=== PATIENT | male | born 1965 | race Caucasian/White ===

== ENCOUNTER 2019-04-26 12:04 | Inpatient (IN) ==
--- OUTSIDE RECORDS SUMMARY | 2019-04-26 12:07 | External Medical Summary | Continuity of Care Document ---
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) Change in bowel habits (787.99) (R19.4) Diarrhea (787.91) (R19.7) Extrinsic asthma (493.00) (J45.909) Allergic rhinitis due to dust (477.8) (J30.89) Allergic rhinitis due to pollen (477.0) (J30.1) Esophageal reflux (530.81) (K21.9) Bloating (787.3) (R14.0) Allergies and Adverse Reactions Iodinated Contrast Media (Allergy) React ion: Hives Medications Ventolin HFA 108 (90 Base) MCG/ACT Inhal ation Aerosol Solution; INHALE TWO PUFFS BY MOUTH EVERY 4 TO 6 HOURS NEEDED NICOLLE Wasserman Start: 22-Mar-19 Quantity: 1 18 GM Inhaler Refills: 5 Symbicort 160-4.5 MCG/ACT Inhalation Aer osol; INHALE 2 PUFFS TWICE DAILY. RINSE MOUTH AFTER USE. NICOLLE Wasserman Start: 19-Apr-2011 Quantity: 1 Refills: 5 Fluticasone Propionate 50 MCG/ACT Nasal Suspension; USE 2 SPRAYS IN EACH NOSTRIL ONCE DAILY NICOLLE Wasserman Start: 19-Apr-2011 Quantity: 1 Refills: 5 Procedures History of Tonsillectomy Status: Complet ed History of Ear Pressure Equalization Tube, Insertion Status: Completed History of Hernia Repair Inguinal Sliding Status: Completed Immunizations Immunizations not documented Family History Father Family history of Acute Myocardial Infarction (V17.3) Status : Active Family history of Stroke Syndrome (V17.1) Status: Active Family history of Asthma (V17.5) Status: Active Mother Family history of Stroke Syndrome (V17.1) Status: Active Family history of Diabetes Mellitus (V18.0) Status: Active Family history of Graves' Disease Status: Active Family history of Allergic Rhinitis Status: Active Social History - Smoking Status Ex-smoker Plan of Treatment Planned Observations Planned Goals not documented Results No Known Results Results not documented
--- OUTSIDE RECORDS SUMMARY | 2019-04-26 12:08 | External Medical Summary | Continuity of Care Document ---
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
[2019-04-26] MEDS ORDERED: SODIUM CHLORIDE 0.9% 1000ML 1,000 ML IV ONE (12:32)
[2019-04-26] MEDS ORDERED: ALBUTEROL 0.083% NEBU SOLN 3 ML VIAL NEB STA (12:35)
[2019-04-26] MEDS ORDERED: methylPREDNISolone 125 MG/2 ML VIAL IV STA (12:35)
[2019-04-26] MEDS ORDERED: ACETAMINOPHEN 500 MG TAB PO STA (12:37)
[2019-04-26 12:56] LABS: Influenza B virus by PCR Neg for Influ B (Neg)
[2019-04-26 13:21] LABS: Hematocrit (blood only) 40.5 % (42-52); Hemoglobin 13.8 g/dL (14.0-18.0); Immature Granulocytes # (auto) 0.02 K/uL (0.00-0.02); Immature Granulocytes % (auto) 0.3 %; Lymphocytes # (auto) 0.35 K/uL (1.2-3.4); Lymphocytes % (auto) 5.3 %; Mean Corpuscular Hemoglobin 28.8 pg (25-34); Mean Corpuscular Hgb Conc 34.1 g/dL (32-36); Mean Corpuscular Volume 84.4 fL (80-100); Mean Platelet Volume 9.8 fL (7.4-10.4); Monocytes # (auto) 0.76 K/uL (0.11-0.59); Monocytes % (auto) 11.6 %; Neutrophils # (auto) 5.44 K/uL (1.4-6.5); Neutrophils % (auto) 82.8 %; Platelet Count 168 K/uL (130-400); RDW Coefficient of Variation 13.3 % (11.5-14.5); RDW Standard Deviation 40.8 fL (36.4-46.3); White Blood Count 6.57 K/uL (4.8-10.8)
[2019-04-26 13:39] LABS: Alanine Aminotransferase 32 U/L (12-78); Albumin Globulin Ratio 0.9 (0.9-2); Albumin Level 3.7 gm/dl (3.4-5.0); Aspartate Aminotransferase 29 U/L (15-37); BUN Creatinine Ratio 13.4 (10-20); Bilirubin,Total 0.3 mg/dl (0.2-1); Blood Urea Nitrogen 13 mg/dl (7-18); Calcium 8.8 mg/dl (8.5-10.1); Carbon Dioxide 21 mmol/L (21-32); Chloride 105 mmol/L (98-107); Creatinine Clr Calc Pharmacy 110.4 ml/min; Est GFR (African American) 100.4; Est GFR (Non-African American) 86.6; Globulin 3.9 gm/dl (2.5-4.0); Glucose 108 mg/dl (70-99); Magnesium 2.1 mg/dl (1.8-2.4); Partial Thromboplastin Ratio 1.2; Partial Thromboplastin Time 32.5 Seconds (21.0-31.0); Potassium 4.1 mmol/L (3.5-5.1); Prothrombin Time 10.6 Seconds (9.0-12.0); Sodium 134 mmol/L (136-145); Total Protein 7.6 gm/dl (6.4-8.2)
[2019-04-26 13:42] LABS: Alkaline Phosphatase 42 U/L (45-117); Troponin I < 0.015 ng/ml (0-0.045)
--- NOTE | 2019-04-26 13:51 | XRay Report ---
XR chest 1V portable CLINICAL HISTORY: Sepsis. COMPARISON STUDY: No previous studies for comparison. FINDINGS: An 8 mm nodular opacity within the right midlung is noted. Mild left basilar opacity is pre sent. Mild bilateral hilar enlargement is noted. Cardiac size is normal. Mediastinal contours are unr emarkable. There is no pneumothorax or pleural effusion. Patient is mildly rotated. IMPRESSION: 1. Mild left basilar opacity which favors pneumonia. Radiographic follow up to ensure resolution is r ecommended. 2. Possible 8 mm right midlung nodule which should be assessed on follow-up chest radiograph. 3. Mild bilateral hilar enlargement which may be reactive but can be assessed on subsequent chest rad iographs. ACT 112: Negative or not required by law. Electronically signed by: Rui Medina M.D. 04/26/2019 1:49 PM
[2019-04-26] MEDS ORDERED: AZITHROMYCIN 250 MG TAB PO ONE (13:52)
[2019-04-26] MEDS ORDERED: cefTRIAXone SODIUM 1,000 MG/50 ML BAG IV STA (13:52)
[2019-04-26] MEDS ORDERED: OSELTAMIVIR PHOSPHATE 75 MG CAP PO STA (13:52)
[2019-04-26 14:38] LABS: Appearance Urine Clear (Clear); Bilirubin Urine Negative (Negative); Blood Urine Negative (Negative); Color Urine Yellow; Glucose Urine UA Negative (Negative); Ketones Urine 1+ (Negative); Leukocyte Esterase Urine Negative (Negative); Nitrite Urine Negative (Negative); Protein Urine Negative (Negative); Specific Gravity Urine 1.014 (1.000-1.030); Urobilinogen Urine Negative (Negative)
--- NOTE | 2019-04-26 15:09 | CT Scan Report ---
CT OF THE CHEST WITHOUT IV CONTRAST CLINICAL HISTORY: pna concern for aggarwal COMPARISON STUDY: Chest radiograph April 26, 2019. CT DOSE: 662.86 mGycm TECHNIQUE: Axial images of the chest were obtained without IV contrast. Images were reviewed in the axial, sagittal, and coronal planes. IV contrast was not administered for this examination. Automat ed exposure control was utilized for the study. A dose lowering technique was utilized adhering to t he principles of ALARA. FINDINGS: Size of the heart is normal. There is no pericardial effusion. No pneumothorax or pleural effusion is noted. The central airways are patent. No enlarged thoracic lymph nodes are present. Mult ifocal groundglass opacities and consolidation are present within the lungs. Confluent subpleural tony undglass opacity and consolidation within the left lower lobe is noted. These opacities are present w ithin the right upper lobe, lingula and bilateral lower lobes. There is no cavitation. Upper abdomen is unremarkable. Bony thorax is unremarkable. IMPRESSION: Multifocal groundglass opacities and consolidation with bilateral lower lobe and periphe ral predominance. This represents an infectious process and favors multifocal pneumonia. The etiology is nonspecific by imaging however coronavirus is within the differential. Findings discussed with Dr Fabby Veliz at time of dictation. ACT 112: Negative or not required by law. Electronically signed by: Rui Medina M.D. 04/26/2019 3:08 PM
--- NOTE | 2019-04-26 15:31 | History & Physical Report ---
Date of Service April 26, 2019 Assessment & Plan (1) Multifocal pneumonia: Admits to PCU on telemetry, Vital signs every 4 hours, Droplet precautions, Continue treating for influenza A with oseltamivir 75 mg p.o. twice daily for 5 days. Albuterol inhaler 4 times daily as needed, Robitussin 10 mils p.o. every 6 hours as needed cough. Solu-Medrol 40 mg IV twice daily and taper down, Started ceftriaxone 2 g IV and continue on the floor for pneumonia, Started doxycycline 100 mg IV twice daily DVT prophylaxis Heparin 5000 units CTA of the chest without nonconclusive in regard of coronavirus.We discussed the case with [facility]fection [facility] as well with Dr. Titi thrasher [facility] [place] and he recommended to treat it as Influenza A with droplet precautions and Tamiflu. Full code Present on Admission?: Yes (2) Sepsis: Lactate is 1.6. Patient is tachycardic at 104 bpm, Continue monitoring and management as the above. Present on Admission?: Yes (3) Influenza A: Continue on oseltamivir 75 mg twice daily for 5 days. Present on Admission?: Yes (4) Asthma: Continue albuterol 1 inhaler 4 times daily as needed, continue Advair Diskus, continue montelukast 10 mg p.o. nightly History of Present Illness Chief Complaint: Persistent cough and flulike symptoms Primary Care Provider: Kindra Wasserman PA-C The patient is a 52 years old male with past medical history of asthma who presents to the emergency room with a complaint of fever, chills, shortness of breath, persistent dry cough since last night. Patient reports traveling and coming back from [place] 2 weeks ago. Patient states that he had 3 times pneumonia in his lifetime but this 1 is the worst. Patient usually takes albuterol HFA inhaler and Robitussin syrup for cough. Patient is not aware of any sick contact. The labs are reviewed and shows: WBC 6.57, hemoglobin 13.8, hematocrit 40.5, platelets 168, lymphocytes decreased to 0.35, monocytes increased to 0.76.Sodium 134, potassium 4.1, chloride 105, carbon dioxide 21, anion gap 8, BUN 13, creatinine 0.99, and GFR 86.6, BUN 13.4, glucose 108, lactate 1.5, calcium 8.8, magnesium 2.1, total bilirubin 0.3, AST 29, ALT 32, alkaline phosphatase 42, troponin 0.015, total protein 7.6, albumin 3.7, globulin 3.9. Urine all normal except for increased ketones. Serology positive for influenza A. Influenza B negative. CT of the chest shows multifocal groundglass opacities and consolidation with bilateral lower lobe and peripheral predominant due to presenting infectious process at the left multifocal pneumonia. The etiology is nonspecific by imaging however coronavirus indicating a differential. The decision was made to admit patient to PCU on telemetry on droplet precautions. Allergies Allergy/AdvReac Type Severity Reaction Status Date / Time No Known Allergies Allergy Unverified 04/26/19 14:14 Home Medications Home Medications Medication Instructions Recorded Confirmed Type acetaminophen [Tylenol Extra 1,000 mg PO QID PRN 04/26/19 04/26/19 History Strength] albuterol sulfate 1 inh INHALATION QID PRN 04/26/19 04/26/19 History dextromethorphan-guaifenesin 10 ml PO Q6H PRN 04/26/19 04/26/19 History [Delsym Cough-Chest Congest DM] fluticasone propion-salmeterol 1 inh INHALATION BID 04/26/19 04/26/19 History [Advair Diskus] fluticasone propionate 1 spray INTRANASAL BID 04/26/19 04/26/19 History guaifenesin [Mucinex] 600 mg PO Q12H PRN 04/26/19 04/26/19 History ibuprofen [Advil] 400 mg PO Q6H PRN 04/26/19 04/26/19 History montelukast 10 mg PO HS 04/26/19 04/26/19 History pseudoephedrine HCl [Sudafed] 30 mg PO Q6H PRN 04/26/19 04/26/19 History Past Med/Surg History Family History Other No pertinent family history Social History Preferred Language: Finnish marital status: current occupational status: employed Feels Safe at Home: Yes Smoking Status: Never smoker Review of Systems Review of Systems: All systems reviewed & are unremarkable except as noted in HPI & below Physical Exam Constitutional: WD/WN, vitals as above well developed and + obese Eyes: PERRL, conjunctivae normal, anicteric sclerae ENMT: external ear and nose normal, oropharynx normal Neck: trachea midline, no thyromegaly Respiratory: Auscultation: + crackles and + wheezes Cardiovascular: RRR, no murmur, no edema Gastrointestinal (Abdomen): normal bowel sounds, soft, nontender, no hepatosplenomegaly Musculoskeletal: no cyanosis or clubbing, extremities motor strength 5/5 Skin: no rashes, warm and dry Neurologic: patellar DTR's 2+ bilat, sensation intact Psychiatric: A+Ox3, euthymic affect Lymphatic: no cervical or axillary lymphadenopathy Results & Data Vital Signs (Past 12 Hours) Vital Signs Temp Pulse Pulse Resp BP Pulse Ox 04/26/19 13:31 104 H 23 147/75 H 95 04/26/19 13:30 106 H 21 93 04/26/19 13:15 110 H 18 04/26/19 13:00 107 H 28 H 98 04/26/19 12:59 117 H 19 04/26/19 12:58 114 H 20 94 04/26/19 12:45 102 H 15 93 04/26/19 12:33 94 04/26/19 12:30 104 H 16 95 04/26/19 12:23 118 H 12 95 04/26/19 12:15 38.6 C H 108 H 22 124/82 94 04/26/19 12:13 108 H 14 124/82 94 Code Status & VTE Plan Code Status Full Code VTE Prophylaxis Plan VTE Prophylaxis will be ordered: Yes PG Care Time/CCT Total # of Minutes Spent Total Time Spent with Patient: Total time spent is greater than 50% in coordination of care (as documented) at patient's floor/unit and/or counseling patient: Coding Level of Care Code 84769 Initial Inpt Care Lvl 3 Diagnoses Multifocal pneumonia J18.9 Sepsis A41.9 Sepsis acute organ dysfunction status: unspecified Sepsis type: sepsis due to unspecified organism Influenza A J10.1 Asthma J45.909 (1) Sepsis Sepsis acute organ dysfunction status: unspecified Sepsis type: sepsis due to unspecified organism Qualified Code(s): A41.9 - Sepsis, unspecified organism
--- NOTE | 2019-04-26 16:05 | Electrocardiogram Report ---
Test Reason : Blood Pressure : / mmHG Vent. Rate : 106 BPM Atrial Rate : 106 BPM P-R Int : 176 ms QRS Dur : 082 ms QT Int : 332 ms P-R-T Axes : 019 024 024 degrees QTc Int : 441 ms Poor data quality, interpretation may be adversely affected Sinus tachycardia Otherwise normal ECG No previous ECGs available Confirmed by Ned Yanes ([id number]) on 04/26/2019 4:04:26 PM Referred By: REFERRED SELF Confirmed By:Ned Yanes
--- NOTE | 2019-04-26 18:20 | Emergency Department Note ---
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 The patient reports that he has been experiencing fevers, cough, and shortness of breath that improved 3 days ago and worsened again yesterday. He explains that he is short of breath because he has a burning sensation in the back of his throat when he inspires. He states that he traveled to [facility] from 04/06 to 04/12 in an area with reported cases of coronavirus. Patient's got sick 3-4 days after the patient and tested negative for the flu. Patient notes he was feeling better a couple days ago but fevers reoccurred and the shortness of breath has been getting worse. Home Medications Home Medications Medication Instructions Recorded Confirmed Type acetaminophen [Tylenol Extra 1,000 mg PO QID PRN 04/26/19 04/26/19 History Strength] albuterol sulfate 1 inh INHALATION QID PRN 04/26/19 04/26/19 History dextromethorphan-guaifenesin 10 ml PO Q6H PRN 04/26/19 04/26/19 History [Delsym Cough-Chest Congest DM] fluticasone propion-salmeterol 1 inh INHALATION BID 04/26/19 04/26/19 History [Advair Diskus] fluticasone propionate 1 spray INTRANASAL BID 04/26/19 04/26/19 History guaifenesin [Mucinex] 600 mg PO Q12H PRN 04/26/19 04/26/19 History ibuprofen [Advil] 400 mg PO Q6H PRN 04/26/19 04/26/19 History montelukast 10 mg PO HS 04/26/19 04/26/19 History pseudoephedrine HCl [Sudafed] 30 mg PO Q6H PRN 04/26/19 04/26/19 History Allergies Allergy/AdvReac Type Severity Reaction Status Date / Time No Known Allergies Allergy Unverified 04/26/19 14:14 Past Med/Surg History Family History Other No pertinent family history Social History Preferred Language: Malay Communication Ability: Effective 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 and A total of 10 systems reviewed and were otherwise negative Physical Exam Vital Signs Vital Signs - 24 hr 04/26/19 12:13 04/26/19 12:15 04/26/19 12:23 Temperature 38.6 C H Temperature Source Oral Pulse Rate 108 H 108 H 118 H Pulse Rate [Apical] Pulse Rate from SpO2 Sensor 109 H 119 H Respiratory Rate 14 22 12 Respiratory Effort / Characteristics Blood Pressure 124/82 124/82 Blood Pressure Mean 96 96 Blood Pressure Position Sitting Pulse Oximetry 94 94 95 Oxygen Delivery Method Sepsis Recent Fever Within 48 Hours Yes Sepsis New/Unexplained Change in Mental Status No Sepsis Action Taken by Nursing Physician Notified 04/26/19 12:30 04/26/19 12:33 04/26/19 12:45 Temperature Temperature Source Pulse Rate 104 H 102 H Pulse Rate [Apical] Pulse Rate from SpO2 Sensor 104 H 103 H Respiratory Rate 16 15 Respiratory Effort / Characteristics Blood Pressure Blood Pressure Mean Blood Pressure Position Pulse Oximetry 95 94 93 Oxygen Delivery Method Room Air Sepsis Recent Fever Within 48 Hours Sepsis New/Unexplained Change in Mental Status Sepsis Action Taken by Nursing 04/26/19 12:58 04/26/19 12:59 04/26/19 13:00 Temperature Temperature Source Pulse Rate 107 H Pulse Rate [Apical] 114 H 117 H Pulse Rate from SpO2 Sensor 108 H Respiratory Rate 20 19 28 H Respiratory Effort / Characteristics Non-Labored Spontaneous Non-Labored Spontaneous Blood Pressure Blood Pressure Mean Blood Pressure Position Pulse Oximetry 94 98 Oxygen Delivery Method Room Air Room Air Sepsis Recent Fever Within 48 Hours Sepsis New/Unexplained Change in Mental Status Sepsis Action Taken by Nursing 04/26/19 13:15 04/26/19 13:30 04/26/19 13:31 Temperature Temperature Source Pulse Rate 110 H 106 H 104 H Pulse Rate [Apical] Pulse Rate from SpO2 Sensor 106 H 105 H Respiratory Rate 18 21 23 Respiratory Effort / Characteristics Blood Pressure 147/75 H Blood Pressure Mean 93 Blood Pressure Position Pulse Oximetry 93 95 Oxygen Delivery Method Sepsis Recent Fever Within 48 Hours Sepsis New/Unexplained Change in Mental Status Sepsis Action Taken by Nursing 04/26/19 14:00 Temperature Temperature Source Pulse Rate 108 H Pulse Rate [Apical] Pulse Rate from SpO2 Sensor 108 H Respiratory Rate 26 H Respiratory Effort / Characteristics Blood Pressure 141/77 H Blood Pressure Mean 92 Blood Pressure Position Pulse Oximetry 92 Oxygen Delivery Method Sepsis Recent Fever Within 48 Hours Sepsis New/Unexplained Change in Mental Status Sepsis Action Taken by Nursing GENERAL: Sitting up in bed, slightly ill-appearing, nontoxic EYE EXAM: normal conjunctiva EAR EXAM: TMs clear OROPHARYNX: no exudate, no erythema, lips, buccal mucosa, and tongue normal and mucous membranes are moist, persistent cough NECK: supple, no nuchal rigidity, no adenopathy, non-tender LUNGS: Faint wheezing bilaterally. Normal chest wall mechanics HEART: Tachycardic rate, no murmurs, S1 normal and S2 normal ABDOMEN: abdomen soft, non-tender, normo-active bowel sounds, no masses, no rebound or guarding. BACK: Back is symmetrical on inspection and there is no deformity, no midline tenderness, no CVA tenderness. SKIN: no rashes and no bruising UPPER EXTREMITIES: upper extremities are grossly normal. LOWER EXTREMITIES: No pitting edema. NEURO EXAM: Normal sensorium, cranial nerves II-XII grossly intact, normal speech, no gross weakness of arms, no gross weakness of legs. Gross sensation intact. Course Course ED COURSE: Vital signs were reviewed and showed febrile and tachycardic The patients medical record was reviewed The above diagnostic studies were performed and reviewed. ED treatments and interventions as stated above. 1217: The patient was evaluated in room A4B. A complete history and physical examination was performed. 1355: Upon reevaluation, the patient is resting and feeling a little better. I discussed my findings with the patient and he understands and agrees with the treatment plan. 1455: I discussed the patient's case with Dr. Mone Locke. Dr. Shore will evaluate the patient for further management. Based on the patients age, coexisting illnesses, exam and lab findings the decision to treat as an inpatient was made. The patient remained stable while under my care. The patient will be evaluated for further management. Consultations Consultation #1: I discussed the patient's case with Dr. Mone Locke. Dr. Shore will evaluate the patient for further management. Time: 14:55 Administered Medications Discontinued Medications Acetaminophen (Tylenol) 1,000 mg PO NOW STA Stop: 04/26/19 12:38 Last Admin: 04/26/19 12:54 Dose: 1,000 mg Documented by: [id number] Albuterol (Ventolin 0.083% 2.5mg/3ml) 5 mg NEB NOW STA Stop: 04/26/19 12:36 Last Admin: 04/26/19 12:57 Dose: 5 mg Documented by: [id number] Azithromycin (Zithromax) 500 mg PO NOW ONE Stop: 04/26/19 13:53 Last Admin: 04/26/19 14:11 Dose: 500 mg Documented by: [id number] Sodium Chloride (Nss 1000ml) 1,000 mls @ 999 mls/hr IV .Q1H1M ONE Stop: 04/26/19 13:32 Last Infusion: 04/26/19 14:11 Dose: 0 mls/hr Documented by: [id number] Admin: 04/26/19 12:55 Dose: 999 mls/hr Documented by: [id number] Ceftriaxone Sodium (Rocephin) 1,000 mg in 50 mls @ 100 mls/hr IV NOW STA Stop: 04/26/19 14:21 Last Infusion: 04/26/19 14:40 Dose: 0 mls/hr Documented by: [id number] Admin: 04/26/19 14:11 Dose: 100 mls/hr Documented by: [id number] Methylprednisolone (Solumedrol) 125 mg IV NOW STA Stop: 04/26/19 12:36 Last Admin: 04/26/19 12:54 Dose: 125 mg Documented by: [id number] Oseltamivir Phosphate (Tamiflu) 75 mg PO NOW STA; Protocol Stop: 04/26/19 13:53 Last Admin: 04/26/19 14:10 Dose: 75 mg Documented by: [id number] Critical Care Time Critical Care Time: Yes Total Critical Care Time: 33 I have personally spent 33 minutes of critical care time in the direct management of this patient. This includes bedside care, interpretation of diagnostic studies, and testing, discussion with consultants, patient, and family members, and other required patient management activities. This 33 minutes is in excess of all separately billable procedures. Medical Decision Making Differential Diagnosis Differential diagnosis includes etiologies such as sepsis, UTI, pneumonia, metabolic, electrolyte abnormalities, cardiac sources, intracerebral event, toxicologic, neurologic, as well as others were entertained. Medical Records Attestation: I reviewed the patient's medical records. Home Medications Current Medication List: was personally reviewed by me Laboratory Data Attestation: I reviewed the patient's lab results. Result diagrams: 04/26/19 13:00 04/26/19 13:00 Lab Results 04/26/19 04/26/19 04/26/19 Range/Units 12:10 13:00 13:00 WBC 6.57 (4.8-10.8) K/uL RBC 4.80 (4.7-6.1) M/uL Hgb 13.8 L (14.0-18.0) g/dL Hct 40.5 L (42-52) % MCV 84.4 (80-100) fL MCH 28.8 (25-34) pg MCHC 34.1 (32-36) g/dL RDW Std Deviation 40.8 (36.4-46.3) fL RDW Coeff of Evelio 13.3 (11.5-14.5) % Plt Count 168 (130-400) K/uL MPV 9.8 (7.4-10.4) fL Immature Gran % (Auto) 0.3 % Neut % (Auto) 82.8 % Lymph % (Auto) 5.3 % [place] % (Auto) 11.6 % Eos % (Auto) 0.0 % Baso % (Auto) 0.0 % Immature Gran # (Auto) 0.02 (0.00-0.02) K/uL Neut # (Auto) 5.44 (1.4-6.5) K/uL Lymph # (Auto) 0.35 L (1.2-3.4) K/uL [place] # (Auto) 0.76 H (0.11-0.59) K/uL Eos # (Auto) 0.00 (0-0.5) K/uL Baso # (Auto) 0.00 (0-0.2) K/uL PT 10.6 (9.0-12.0) Seconds INR 1.0 (0.9-1.1) APTT 32.5 H (21.0-31.0) Seconds PTT Ratio 1.2 Sodium (136-145) mmol/L Potassium (3.5-5.1) mmol/L Chloride (98-107) mmol/L Carbon Dioxide (21-32) mmol/L Anion Gap (3-11) BUN (7-18) mg/dl Creatinine (0.6-1.4) mg/dl Est Cr Clr Drug Dosing ml/min Est GFR ( Amer) Est GFR (Non-Af Amer) BUN/Creatinine Ratio (10-20) Glucose (70-99) mg/dl Lactate (0.4-2.0) mmol/L Calcium (8.5-10.1) mg/dl Magnesium (1.8-2.4) mg/dl Total Bilirubin (0.2-1) mg/dl AST (15-37) U/L ALT (12-78) U/L Alkaline Phosphatase (45-117) U/L Troponin I (0-0.045) ng/ml Total Protein (6.4-8.2) gm/dl Albumin (3.4-5.0) gm/dl Globulin (2.5-4.0) gm/dl Albumin/Globulin Ratio (0.9-2) Urine Color Urine Appearance (Clear) Urine pH (4.5-7.5) Ur Specific [place] (1.000-1.030) Urine Protein (Negative) Urine Glucose (UA) (Negative) Urine Ketones (Negative) Urine Blood (Negative) Urine Nitrite (Negative) Urine Bilirubin (Negative) Urine Urobilinogen (Negative) Ur Leukocyte Esterase (Negative) Influenza Type A (PCR) Pos for Influ A A* (Neg) Influenza Type B (PCR) Neg for Influ B (Neg) 04/26/19 04/26/19 04/26/19 Range/Units 13:00 13:24 14:15 WBC (4.8-10.8) K/uL RBC (4.7-6.1) M/uL Hgb (14.0-18.0) g/dL Hct (42-52) % MCV (80-100) fL MCH (25-34) pg MCHC (32-36) g/dL RDW Std Deviation (36.4-46.3) fL RDW Coeff of Evelio (11.5-14.5) % Plt Count (130-400) K/uL MPV (7.4-10.4) fL Immature Gran % (Auto) % Neut % (Auto) % Lymph % (Auto) % [place] % (Auto) % Eos % (Auto) % Baso % (Auto) % Immature Gran # (Auto) (0.00-0.02) K/uL Neut # (Auto) (1.4-6.5) K/uL Lymph # (Auto) (1.2-3.4) K/uL [place] # (Auto) (0.11-0.59) K/uL Eos # (Auto) (0-0.5) K/uL Baso # (Auto) (0-0.2) K/uL PT (9.0-12.0) Seconds INR (0.9-1.1) APTT (21.0-31.0) Seconds PTT Ratio Sodium 134 L (136-145) mmol/L Potassium 4.1 (3.5-5.1) mmol/L Chloride 105 (98-107) mmol/L Carbon Dioxide 21 (21-32) mmol/L Anion Gap 8.0 (3-11) BUN 13 (7-18) mg/dl Creatinine 0.99 (0.6-1.4) mg/dl Est Cr Clr Drug Dosing 110.4 ml/min Est GFR ( Amer) 100.4 Est GFR (Non-Af Amer) 86.6 BUN/Creatinine Ratio 13.4 (10-20) Glucose 108 H (70-99) mg/dl Lactate 1.5 (0.4-2.0) mmol/L Calcium 8.8 (8.5-10.1) mg/dl Magnesium 2.1 (1.8-2.4) mg/dl Total Bilirubin 0.3 (0.2-1) mg/dl AST 29 (15-37) U/L ALT 32 (12-78) U/L Alkaline Phosphatase 42 L (45-117) U/L Troponin I < 0.015 (0-0.045) ng/ml Total Protein 7.6 (6.4-8.2) gm/dl Albumin 3.7 (3.4-5.0) gm/dl Globulin 3.9 (2.5-4.0) gm/dl Albumin/Globulin Ratio 0.9 (0.9-2) Urine Color Yellow Urine Appearance Clear (Clear) Urine pH 6.0 (4.5-7.5) Ur Specific [place] 1.014 (1.000-1.030) Urine Protein Negative (Negative) Urine Glucose (UA) Negative (Negative) Urine Ketones 1+ H (Negative) Urine Blood Negative (Negative) Urine Nitrite Negative (Negative) Urine Bilirubin Negative (Negative) Urine Urobilinogen Negative (Negative) Ur Leukocyte Esterase Negative (Negative) Influenza Type A (PCR) (Neg) Influenza Type B (PCR) (Neg) Imaging Data Radiologist's Impression: Radiology results as stated below per my review and the radiologist's interpretation: XR chest 1V portable CLINICAL HISTORY: Sepsis. COMPARISON STUDY: No previous studies for comparison. FINDINGS: An 8 mm nodular opacity within the right midlung is noted. Mild left basilar opacity is present. Mild bilateral hilar enlargement is noted. Cardiac size is normal. Mediastinal contours are unremarkable. There is no pneumothorax or pleural effusion. Patient is mildly rotated. IMPRESSION: 1. Mild left basilar opacity which favors pneumonia. Radiographic follow up to ensure resolution is recommended. 2. Possible 8 mm right midlung nodule which should be assessed on follow-up chest radiograph. 3. Mild bilateral hilar enlargement which may be reactive but can be assessed on subsequent chest radiographs. ACT 112: Negative or not required by law. Electronically signed by: Rui Medina M.D. 04/26/2019 1:[address] OF THE CHEST WITHOUT IV CONTRAST CLINICAL HISTORY: pna concern for aggarwal COMPARISON STUDY: Chest radiograph April 26, 2019. CT DOSE: 662.86 mGycm TECHNIQUE: Axial images of the chest were obtained without IV contrast. Images were reviewed in the axial, sagittal, and coronal planes. IV contrast was not administered for this examination. Automated exposure control was utilized for the study. A dose lowering technique was utilized adhering to the principles of ALARA. FINDINGS: Size of the heart is normal. There is no pericardial effusion. No pneumothorax or pleural effusion is noted. The central airways are patent. No enlarged thoracic lymph nodes are present. Multifocal groundglass opacities and consolidation are present within the lungs. Confluent subpleural groundglass opa city and consolidation within the left lower lobe is noted. These opacities are present within the right upper lobe, lingula and bilateral lower lobes. There is no cavitation. Upper abdomen is unremarkable. Bony thorax is unremarkable. IMPRESSION: Multifocal groundglass opacities and consolidation with bilateral lower lobe and peripheral predominance. This represents an infectious process and favors multifocal pneumonia. The etiology is nonspecific by imaging however coronavirus is within the differential. Findings discussed with Dr. Veliz at time of dictation. ACT 112: Negative or not required by law. Electronically signed by: Rui Medina M.D. 04/26/2019 3:08 PM ECG Data Attestation: I personally reviewed and interpreted this ECG as follows: Indication: + other (flu like symptoms) Rate (beats per minute): 106 Rhythm: + sinus tachycardia ECG Intervals/blocks: + Normal QT-c ECG [place]: + Normal ECG Findings: no PVCs Blood Pressure Blood Pressure Findings: Elevated blood pressure Blood Pressure Disposition: further management by hospitalist GÓMEZ Narrative Patient is a 53-year-old male with recent travel to [place] at the end of March for close to 2 weeks. Upon coming home he started to have fevers and upper respiratory symptoms. The symptoms did improve but then recurred and worsened within the past 3 days. IV was established blood work was obtained and showed no significant leukocytosis or anemia. INR was unremarkable. PE with a mild hyponatremia. LFTs bilirubin and troponin were negative. UA was negative. Positive for influenza A. Chest x-ray with a left lower lobe infiltrate. Patient was febrile and tachycardic with a heart rate in the 130s. He was given IV fluids and IV antibiotics as well as Tamiflu. Discussed with infectious control who is at bedside. Did discuss testing for coronavirus and was flu positive elected not to. Discussed with hospitalist for admission secondary to sepsis but they recommended a CT of the chest for possible chronic. CT of the chest showed multifocal pneumonia. Cannot exclude aggarwal with this. Multiple conversations with our infectious control and hospitalist who eventually got a hold of the Department of Health that recommended not testing. Continuous Cardiac Monitoring: An order was placed for continuous cardiac monitoring. The monitor shows a rate of 106 with sinus rhythm. Impression & Plan Sepsis, Multifocal pneumonia, Influenza A Discharge Plan Visit Data Chief Complaint: Flu Like Symptoms Stated Complaint: 9 DAYS OF FLU SYMPTOMS, SOB, [place] FOR A WEEK ED Provider: Charan Veliz Discharge Problem: Sepsis, Multifocal pneumonia, Influenza A Patient Disposition: Admitted As Inpatient Discharge Instructions Interventions: ED Discharge Assessment Last Done: 04/26/19 17:45 Discharge Problem: Sepsis Qualifiers: Sepsis type: sepsis due to unspecified organism Sepsis acute organ dysfunction status: unspecified Qualified Code(s): A41.9 - Sepsis, unspecified organism The scribe's documentation has been prepared under my direction and personally reviewed by me in its entirety. I confirm that the note above accurately re flects all work, treatment, procedures, and medical decision making performed by me.
[2019-04-26] MEDS ORDERED: ALBUTEROL HFA 8 GM INHALER INH PRN (18:22)
[2019-04-26] MEDS ORDERED: PSEUDOEPHEDRINE HCL 30 MG TAB PO PRN (18:22)
[2019-04-26] MEDS ORDERED: KETOROLAC 30 MG/ML VIAL IV PRN (18:22)
[2019-04-26] MEDS ORDERED: ALUMINUM/MAGNESIUM SUSP 30 ML UDC PO PRN (18:22)
[2019-04-26] MEDS ORDERED: MoRPHine SULFATE 2 MG/ML CARP IV PRN (18:22)
[2019-04-26] MEDS ORDERED: POLYETHYLENE (MIRALAX) 17 GM PACK PO PRN (18:22)
[2019-04-26] MEDS ORDERED: ACETAMINOPHEN 325 MG TAB PO PRN (18:22)
[2019-04-26] MEDS ORDERED: MAGNESIUM HYDROXIDE SUSP 30 ML UDC PO PRN (18:22)
[2019-04-26] MEDS ORDERED: GUAIFENESIN/CODEINE 200MG/20MG 10ML UDC PO PRN (18:22)
[2019-04-26] MEDS: SODIUM CHLORIDE 0.9% 1000ML 1,000 ML IV SCH (19:41)
[2019-04-26] MEDS: DOXYCYCLINE HYCLATE 100 MG in DEXTROSE 5% 100 ML IV SCH (19:42)
[2019-04-26] MEDS: methylPREDNISolone 40 MG in SYRINGE 0 ML IV SCH (19:47)
[2019-04-26] MEDS: ENOXAPARIN INJ 40 MG/0.4 ML SYR SQ SCH (19:55)
[2019-04-26] MEDS: FLUTICASONE PROPIONATE NA SPR 16 GM BTL SCH (19:55)
[2019-04-26] MEDS: OSELTAMIVIR PHOSPHATE 75 MG CAP PO SCH (19:56)
[2019-04-26] MEDS: MONTELUKAST SODIUM 10 MG TABLET PO SCH (19:57)
[2019-04-27] MEDS: SODIUM CHLORIDE 0.9% 1000ML 1,000 ML IV SCH ×2 (06:34→18:41)
[2019-04-27] MEDS: DOXYCYCLINE HYCLATE 100 MG in DEXTROSE 5% 100 ML IV SCH ×2 (06:34→18:41)
[2019-04-27] MEDS: methylPREDNISolone 40 MG in SYRINGE 0 ML IV SCH ×2 (06:34→18:41)
[2019-04-27 08:05] LABS: Basophils # (auto) 0.01 K/uL (0-0.2); Basophils % (auto) 0.2 %; Hematocrit (blood only) 38.8 % (42-52); Hemoglobin 12.9 g/dL (14.0-18.0); Immature Granulocytes # (auto) 0.01 K/uL (0.00-0.02); Immature Granulocytes % (auto) 0.2 %; Lymphocytes # (auto) 0.75 K/uL (1.2-3.4); Lymphocytes % (auto) 16.6 %; Mean Corpuscular Hemoglobin 28.6 pg (25-34); Mean Corpuscular Hgb Conc 33.2 g/dL (32-36); Mean Platelet Volume 9.6 fL (7.4-10.4); Monocytes # (auto) 0.68 K/uL (0.11-0.59); Monocytes % (auto) 15.1 %; Neutrophils # (auto) 3.06 K/uL (1.4-6.5); Neutrophils % (auto) 67.9 %; Platelet Count 198 K/uL (130-400); RDW Coefficient of Variation 13.4 % (11.5-14.5); RDW Standard Deviation 42.7 fL (36.4-46.3); Red Blood Count 4.51 M/uL (4.7-6.1); White Blood Count 4.51 K/uL (4.8-10.8)
[2019-04-27 08:11] LABS: BUN Creatinine Ratio 17.2 (10-20); Calcium 8.8 mg/dl (8.5-10.1); Creatinine Clr Calc Pharmacy 110.4 ml/min; Est GFR (African American) 105.5; Potassium 4.2 mmol/L (3.5-5.1)
[2019-04-27] MEDS: FLUTICASONE/VILANTEROL 100/25MCG 14 PUFFS/INHALER INH SCH (08:36)
[2019-04-27] MEDS: OSELTAMIVIR PHOSPHATE 75 MG CAP PO SCH ×2 (08:36→20:35)
[2019-04-27] MEDS: GUAIFENESIN/DEXTROM SYRUP 200MG/20MG 10ML UDC PO PRN ×2 (08:36→18:41)
[2019-04-27] MEDS: FLUTICASONE PROPIONATE NA SPR 16 GM BTL SCH ×2 (08:37→20:33)
--- NOTE | 2019-04-27 13:24 | Hospitalist Progress Note ---
Date of Service April 27, 2019 Assessment & Plan (1) Multifocal pneumonia: symptoms, travel history and CT chest findings concerning for possible COVID 19 infection will keep the patient on airborne precautions while here tentatively plan to perform nasal and oral swabs and keep cold with plans to send for testing on Monday clinically he is doing well, vitals stable, no fever in 24 hours, WBC 4k, PT normal breathing well on room air continue treatment for Flu A with Tamiflu continue treatment for possible secondary bacterial pneumonia Doxycycline and Rocephin IV, change to PO antibiotics on discharge for 5-7 day course continue Solu Medrol, convert to Prednisone for 5 days total, no taper planned likely for d/c to home tomorrow will have him quarantine himself until testing for COVID 19 comes back should have his tested as well (2) Sepsis: sepsis resolved, vitals stable SEPSIS is ruled out (3) Influenza A: Continue on oseltamivir 75 mg twice daily for 5 days. (4) Asthma: Continue albuterol 1 inhaler 4 times daily as needed, continue Advair Diskus, continue montelukast 10 mg p.o. nightly no wheezing or distress on exam Admission and Anticipated Discharge Date Admission Date: April 26, 2019 Anticipated date of discharge: 04/28/19 Subjective patient says he feels much better today after 24 hours of antibiotics and steroids still with a productive cough, but he feels less short of breath no fever since time of presentation he is eating well, ambulating in the room without difficulty lengthy discussion about recent travel history, he and his were in [place] for 7 days he thinks it was from 04/13 through they were in the [facility] and [facility] [place], epicenter of the outbreak he has had symptoms of a cough, fever for 10 days now he said that around day 6 or 7 he started to feel better, thought he was over the "hump" but then the next two days he developed new fevers, productive cough, more shortness of breath he reports that his also developed a cough, not sure if she had a fever she went to her PCP and tested negative for the flu, however, she was not tested for COVID 19 reviewed the chart, the [place] dept of health was notified of this patient in the ED after discussion with Dr. Walls at [facility] [place] the decision was made to NOT test the patient because he has Flu A I called my retort load expediter to discuss the situation again because even though he has Flu A, with his travel history I felt it was still important to test him as he could have Flu A as well as COVID [address] Monzon from radiology dept, he had concerns about the CT f indings of peripheral ground glass opacities he stated that these are specific for COVID [address] chest is more sensitive for screening discussed with administration who will be in contact with [place] dept of health again tentatively plan to perform nasal and oral swabs while he is here, send them for testing on Monday clinically he is doing better, likely discharge tomorrow morning with plan to tell him to quarantine himself Review of Systems Review of Systems: All systems reviewed & are unremarkable except as noted in HPI & below Constitutional: + body aches, + fatigue and + weakness; no fever, no chills and no sweats Respiratory: + cough, + dyspnea on exertion and + sputum production; no wheezing Cardiovascular: no chest pain, no syncope and no edema Gastrointestinal: no abdominal pain, no nausea, no vomiting, no constipation and no diarrhea/loose stools Physical Exam Constitutional: WD/WN, vitals as above Eyes: PERRL, conjunctivae normal, anicteric sclerae ENMT: external ear and nose normal, oropharynx normal Neck: trachea midline, no thyromegaly Respiratory: normal respiratory effort and + cough; no respiratory distress and no labored breathing Auscultation: + crackles (bases); no rhonchi and no wheezes Cardiovascular: RRR, no murmur, no edema Gastrointestinal (Abdomen): normal bowel sounds, soft, nontender, no hepatosplenomegaly Musculoskeletal: no cyanosis or clubbing, extremities motor strength 5/5 Skin: no rashes, warm and dry Neurologic: patellar DTR's 2+ bilat, sensation intact and PERRL, EOMI, accommodation nl, no face palsy, no dysarthria Psychiatric: A+Ox3, euthymic affect Lymphatic: no cervical or axillary lymphadenopathy Results & Data ([facility]) Vital Signs (Past 12 Hours) Vital Signs Temp Pulse Pulse Resp BP BP Pulse Ox 04/27/19 11:35 36.7 C 80 19 127/72 96 04/27/19 08:45 67 04/27/19 07:09 37.2 C 78 19 126/72 97 04/27/19 03:02 37.2 C 88 18 124/77 97 Laboratory Results Laboratory Results - last 24 hr 04/26/19 04/26/19 04/26/19 12:10 13:00 13:00 WBC RBC Hgb Hct MCV MCH MCHC RDW Std Deviation RDW Coeff of Evelio Plt Count MPV Immature Gran % (Auto) Neut % (Auto) Lymph % (Auto) [place] % (Auto) Eos % (Auto) Baso % (Auto) Immature Gran # (Auto) Neut # (Auto) Lymph # (Auto) [place] # (Auto) Eos # (Auto) Baso # (Auto) PT 10.6 INR 1.0 APTT 32.5 H PTT Ratio 1.2 Sodium 134 L Potassium 4.1 Chloride 105 Carbon Dioxide 21 Anion Gap 8.0 BUN 13 Creatinine 0.99 Est Cr Clr Drug Dosing 110.4 Est GFR ( Amer) 100.4 Est GFR (Non-Af Amer) 86.6 BUN/Creatinine Ratio 13.4 Glucose 108 H Lactate Calcium 8.8 Magnesium 2.1 Total Bilirubin 0.3 AST 29 ALT 32 Alkaline Phosphatase 42 L Troponin I < 0.015 Total Protein 7.6 Albumin 3.7 Globulin 3.9 Albumin/Globulin Ratio 0.9 Urine Color Urine Appearance Urine pH Ur Specific [place] Urine Protein Urine Glucose (UA) Urine Ketones Urine Blood Urine Nitrite Urine Bilirubin Urine Urobilinogen Ur Leukocyte Esterase Influenza Type A (PCR) Pos for Influ A A* Influenza Type B (PCR) Neg for Influ B 04/26/19 04/26/19 04/27/19 13:24 14:15 07:40 WBC RBC Hgb Hct MCV MCH MCHC RDW Std Deviation RDW Coeff of Evelio Plt Count MPV Immature Gran % (Auto) Neut % (Auto) Lymph % (Auto) [place] % (Auto) Eos % (Auto) Baso % (Auto) Immature Gran # (Auto) Neut # (Auto) Lymph # (Auto) [place] # (Auto) Eos # (Auto) Baso # (Auto) PT INR APTT PTT Ratio Sodium 139 Potassium 4.2 Chloride 109 H Carbon Dioxide 23 Anion Gap 6.0 BUN 16 Creatinine 0.95 Est Cr Clr Drug Dosing 110.4 Est GFR ( Amer) 105.5 Est GFR (Non-Af Amer) 91.0 BUN/Creatinine Ratio 17.2 Glucose 130 H Lactate 1.5 Calcium 8.8 Magnesium Total Bilirubin AST ALT Alkaline Phosphatase Troponin I Total Protein Albumin Globulin Albumin/Globulin Ratio Urine Color Yellow Urine Appearance Clear Urine pH 6.0 Ur Specific [place] 1.014 Urine Protein Negative Urine Glucose (UA) Negative Urine Ketones 1+ H Urine Blood Negative Urine Nitrite Negative Urine Bilirubin Negative Urine Urobilinogen Negative Ur Leukocyte Esterase Negative Influenza Type A (PCR) Influenza Type B (PCR) 04/27/19 07:40 WBC 4.51 L RBC 4.51 L Hgb 12.9 L Hct 38.8 L MCV 86.0 MCH 28.6 MCHC 33.2 RDW Std Deviation 42.7 RDW Coeff of Evelio 13.4 Plt Count 198 MPV 9.6 Immature Gran % (Auto) 0.2 Neut % (Auto) 67.9 Lymph % (Auto) 16.6 [place] % (Auto) 15.1 Eos % (Auto) 0.0 Baso % (Auto) 0.2 Immature Gran # (Auto) 0.01 Neut # (Auto) 3.06 Lymph # (Auto) 0.75 L [place] # (Auto) 0.68 H Eos # (Auto) 0.00 Baso # (Auto) 0.01 PT INR APTT PTT Ratio Sodium Potassium Chloride Carbon Dioxide Anion Gap BUN Creatinine Est Cr Clr Drug Dosing Est GFR ( Amer) Est GFR (Non-Af Amer) BUN/Creatinine Ratio Glucose Lactate Calcium Magnesium Total Bilirubin AST ALT Alkaline Phosphatase Troponin I Total Protein Albumin Globulin Albumin/Globulin Ratio Urine Color Urine Appearance Urine pH Ur Specific [place] Urine Protein Urine Glucose (UA) Urine Ketones Urine Blood Urine Nitrite Urine Bilirubin Urine Urobilinogen Ur Leukocyte Esterase Influenza Type A (PCR) Influenza Type B (PCR) Diagnostic Findings CT chest IMPRESSION: Multifocal groundglass opacities and consolidation with bilateral lower lobe and peripheral predominance. This represents an infectious process and favors multifocal pneumonia. The etiology is nonspecific by imaging however coronavirus is within the differential. Findings discussed with Dr. Veliz at time of dictation. Medications Administered Current Inpatient Medications Acetaminophen (Tylenol) 650 mg PO Q4H PRN PRN Reason: Pain or Fever Stop: 05/26/19 18:21 Al Hydrox/Mg Hydrox/Simethicone (Maalox) 15 ml PO Q4H PRN PRN Reason: Dyspepsia Stop: 05/26/19 18:21 Albuterol (Ventolin Hfa) 1 puffs INH QID PRN PRN Reason: Shortness Of Breath Stop: 05/26/19 18:21 Enoxaparin Sodium (Lovenox) 40 mg SQ Q24H [facility] Stop: 05/26/19 18:21 Last Admin: 04/26/19 19:55 Dose: Not Given Documented by: Fluticasone Propionate (Flonase) 1 sprays NA BID [facility] Stop: 05/26/19 20:59 Last Admin: 04/27/19 08:37 Dose: Not Given Documented by: Fluticasone/Vilanterol (Breo Ellipta 100/25 Mcg Inh) 1 puffs INH DAILY [facility] Stop: 05/27/19 08:59 Last Admin: 04/27/19 08:36 Dose: Not Given Documented by: Guaifenesin (Mucinex) 600 mg PO Q12H PRN PRN Reason: chest congestion Stop: 05/26/19 18:21 Guaifenesin/Codeine Phosphate (Robitussin-Ac Sugar Free) 10 ml PO Q6H PRN PRN Reason: Cough Stop: 05/26/19 18:21 Guaifenesin/Dextromethorphan (Robitussin Cough-Chest Dm) 10 ml PO Q6H PRN PRN Reason: Cough Stop: 05/26/19 18:21 Last Admin: 04/27/19 08:36 Dose: 10 ml Documented by: Ceftriaxone Sodium 2,000 mg/ (Dextrose) 70 mls @ 100 mls/hr IV Q24H [facility]; Protocol Stop: 05/02/19 14:41 Last Admin: 04/27/19 13:06 Dose: 100 mls/hr Documented by: Doxycycline Hyclate 100 mg/ (Dextrose) 110 mls @ 50 mls/hr IV Q12H [facility] Stop: 05/03/19 20:59 Last Infusion: 04/27/19 08:49 Dose: Infused Documented by: Sodium Chloride (Nss 1000ml) 1,000 mls @ 80 mls/hr IV .[id number] [facility] Stop: 05/26/19 18:21 Last Admin: 04/27/19 06:34 Dose: 80 mls/hr Documented by: Methylprednisolone 40 mg/ (Syringe) 0.64 mls @ 1.5 mls/min IV Q12H [facility] Stop: 05/26/19 18:44 Last Admin: 04/27/19 06:34 Dose: 1.5 mls/min Documented by: Ketorolac Tromethamine (Toradol) 30 mg IV Q6H PRN PRN Reason: Pain Stop: 05/01/19 18:21 Magnesium Hydroxide (Milk Of Magnesia) 30 ml PO Q12H PRN PRN Reason: Constipation Stop: 05/26/19 18:21 Montelukast Sodium (Singulair) 10 mg PO HS [facility] Stop: 05/26/19 20:59 Last Admin: 04/26/19 19:57 Dose: 10 mg Documented by: Morphine Sulfate (Morphine Sulfate) 1 mg IV Q3H PRN PRN Reason: Pain Stop: 05/10/19 18:21 Oseltamivir Phosphate (Tamiflu) 75 mg PO BID [facility]; Protocol Stop: 05/01/19 20:59 Last Admin: 04/27/19 08:36 Dose: 75 mg Documented by: Polyethylene Glycol (Miralax Powder Packet) 17 gm PO DAILY PRN PRN Reason: Constipation Stop: 05/26/19 18:21 Pseudoephedrine HCl (Suphedrine Sinus Congestion) 30 mg PO Q6H PRN PRN Reason: Congestion Stop: 05/26/19 18:21 PG Care Time/CCT Total # of Minutes Spent Total Time Spent: 60 Total Time Spent with Patient: Total time spent is greater than 50% in coordination of care (as documented) at patient's floor/unit and/or counseling patient: multiple discussions with administration discussed with Dr. Monzon from radiology multiple discussions with nursing Coding Level of Care Code 97115 Subseq Hosp Care Lvl 3 Diagnoses Multifocal pneumonia J18.9 Sepsis A41.9 Sepsis acute organ dysfunction status: unspecified Sepsis type: sepsis due to unspecified organism Influenza A J10.1 Asthma J45.909 (1) Sepsis Sepsis acute organ dysfunction status: unspecified Sepsis type: sepsis due to unspecified organism Qualified Code(s): A41.9 - Sepsis, unspecified organism
[2019-04-27] MEDS ORDERED: cefTRIAXone SODIUM 2,000 MG in DEXTROSE 5% 50 ML IV SCH (14:00)
[2019-04-27] MEDS: ENOXAPARIN INJ 40 MG/0.4 ML SYR SQ SCH (20:34)
[2019-04-27] MEDS: MONTELUKAST SODIUM 10 MG TABLET PO SCH (20:35)
[2019-04-27] MEDS: guaiFENesin 600 MG TABCR PO PRN (20:35)
[2019-04-28] MEDS: methylPREDNISolone 40 MG in SYRINGE 0 ML IV SCH (06:33)
[2019-04-28] MEDS: SODIUM CHLORIDE 0.9% 1000ML 1,000 ML IV SCH (06:33)
[2019-04-28] MEDS: DOXYCYCLINE HYCLATE 100 MG in DEXTROSE 5% 100 ML IV SCH (06:33)
[2019-04-28] MEDS: FLUTICASONE PROPIONATE NA SPR 16 GM BTL SCH (08:47)
[2019-04-28] MEDS: FLUTICASONE/VILANTEROL 100/25MCG 14 PUFFS/INHALER INH SCH (08:47)
[2019-04-28] MEDS: guaiFENesin 600 MG TABCR PO PRN (08:48)
[2019-04-28] MEDS: OSELTAMIVIR PHOSPHATE 75 MG CAP PO SCH (08:49)
--- NOTE | 2019-04-28 09:57 | Discharge Summary ---
Date of Service April 28, 2019 Admission HPI Per Admitting Provider The patient is a 52 years old male with past medical history of asthma who presents to the emergency room with a complaint of fever, chills, shortness of breath, persistent dry cough since last night. Patient reports traveling and coming back from [place] 2 weeks ago. Patient states that he had 3 times pneumonia in his lifetime but this 1 is the worst. Patient usually takes albuterol HFA inhaler and Robitussin syrup for cough. Patient is not aware of any sick contact. The labs are reviewed and shows: WBC 6.57, hemoglobin 13.8, hematocrit 40.5, platelets 168, lymphocytes decreased to 0.35, monocytes increased to 0.76.Sodium 134, potassium 4.1, chloride 105, carbon dioxide 21, anion gap 8, BUN 13, creatinine 0.99, and GFR 86.6, BUN 13.4, glucose 108, lactate 1.5, calcium 8.8, magnesium 2.1, total bilirubin 0.3, AST 29, ALT 32, alkaline phosphatase 42, troponin 0.015, total protein 7.6, albumin 3.7, globulin 3.9. Urine all normal except for increased ketones. Serology positive for influenza A. Influenza B negative. CT of the chest shows multifocal groundglass opacities and consolidation with bilateral lower lobe and peripheral predominant due to presenting infectious process at the left multifocal pneumonia. The etiology is nonspecific by imaging however coronavirus indicating a differential. The decision was made to admit patient to PCU on telemetry on droplet precautions. Principal Diagnosis Influenza A, multifocal pneumonia Discharge Exam Constitutional WD/WN, vitals as above Eyes PERRL, conjunctivae normal, anicteric sclerae ENMT external ear and nose normal, oropharynx normal Neck trachea midline, no thyromegaly Respiratory normal respiratory effort and + cough; no respiratory distress and no labored breathing Auscultation: + crackles (bases); no rhonchi and no wheezes Cardiovascular RRR, no murmur, no edema Gastrointestinal (Abdomen) normal bowel sounds, soft, nontender, no hepatosplenomegaly Musculoskeletal no cyanosis or clubbing, extremities motor strength 5/5 Skin no rashes, warm and dry Neurologic patellar DTR's 2+ bilat, sensation intact and PERRL, EOMI, accommodation nl, no face palsy, no dysarthria Psychiatric A+Ox3, euthymic affect Lymphatic no cervical or axillary lymphadenopathy Discharge Data Allergies Allergy/AdvReac Type Severity Reaction Status Date / Time Iodinated Contrast Media Allergy Hives Verified 04/26/19 21:57 Consultations 04/26/19 14:01 ED Decision to Admit Stat Ordered Studies 04/26/19 14:21 CT chest wo con Stat Hospital Course (1) Multifocal pneumonia: symptoms, travel history and CT chest findings concerning for possible COVID 19 infection will keep the patient on airborne precautions while here nasopharyngeal, oropharyngeal and sputum samples obtained, plan to send for PCR for COVID 19 tomorrow instructed patient to remain in his home until infection control calls him spoke with Taylor Mcclellan, infection control, she will contact patient tomorrow and will contact him with results when they come back clinically he is doing well, vitals stable, no fever in 48 hours, WBC normal, PT normal breathing well on room air continue treatment for Flu A with Tamiflu continue treatment for possible secondary bacterial pneumonia Doxycycline and Rocephin IV, change to PO antibiotics on discharge for 5 day course continue Solu Medrol, convert to Prednisone for 5 days total, no taper planned follow up with PCP in one week (2) Sepsis: sepsis resolved, vitals stable SEPSIS is ruled out (3) Influenza A: Continue on oseltamivir 75 mg twice daily for 5 days. (4) Asthma: Continue albuterol 1 inhaler 4 times daily as needed, continue Advair Diskus, continue montelukast 10 mg p.o. nightly no wheezing or distress on exam Total Time Total Time Spent Total Time Spent (In Minutes): 34 minutes Total Time Includes: Examination of the Patient, Discharge Planning, Medication Reconciliation and Communication With Other Providers Discharge Plan Discharge Items Patient Disposition: Home - Self-Care Reason For Visit: FLU LIKE SYMPTOMS Discharge Diagnosis: Influenza A Possible secondary bacterial pneumonia, multifocal Possible COVID-19 infection Condition on Discharge: Good Goals: stay well rested, well hydrated, well nourished complete brief course of antibiotics and steroids complete course of Tamiflu stay in quarantine until we contact you about test results Activity: Resume your previous activity Weightbearing: Full weightbearing Non-emergency contact: Primary Care Provider Call non-emergency contact if: you have any medication questions, your symptoms worsen and you have a fever Follow-up/Referrals: Kindra Wasserman PA-C [Primary Care Provider] - Diet: Regular Addtl Attending Provider Instructions: Medications: - TAMIFLU: complete course of 75mg twice a day, next dose due this evening - DOXYCYCLINE: complete a course of 100mg twice a day, next dose due this evening - CEFDINIR: complete a course of 300mg twice a day, nest dose due this evening - PREDNISONE: 40mg daily, start this tomorrow, take for three days Influenza A, multifocal pneumonia on CT scan, possible secondary bacterial infection responded well to antibiotics, steroids, nebulizers, Tamiflu no fever since you were in the ED, vitals stable, eating and drinking well discharge to home to get rest complete the above medications follow up with your PCP in one week, recommend at the end of the week once quarantine lifted Possible COVID 19 infection symptoms of cough and fever and you traveled to an area with known COVID [address] of the chest has ground glass opacities in the bases peripherally this can be diagnostic of a COVID 19 infection, but definitive testing is needed you had nasal and oral swabs prior to leaving the hospital, these will be sent for PCR testing We ask that you quarantine yourself in your home until we contact you with the test results, should take 2-3 days, the testing is performed in [place] but cannot be sent until Friday 04/28 Pending Studies at Discharge: Yes Studies:: COVID-19 testing Stand-Alone Forms: My [facility] [place], Smoking Cessation Medications and DC Order Prescriptions: New oseltamivir [Tamiflu] 75 mg Capsule 75 mg PO BID 2 Days Qty: 5 RF: 0 prednisone 20 mg tablet 40 mg PO DAILY 3 Days Qty: 6 RF: 0 doxycycline hyclate 100 mg capsule 100 mg PO BID 3 Days Qty: 6 RF: 0 cefdinir 300 mg capsule 300 mg PO BID 3 Days Qty: 6 RF: 0 Continued acetaminophen [Tylenol Extra Strength] 500 mg Tablet 1,000 mg PO QID PRN (Reason: Pain) RF: 0 ibuprofen [Advil] 200 mg Tablet 400 mg PO Q6H PRN (Reason: Pain) RF: 0 pseudoephedrine HCl [Sudafed] 30 mg Tablet 30 mg PO Q6H PRN (Reason: Congestion) RF: 0 montelukast 10 mg tablet 10 mg PO HS RF: 0 fluticasone propion-salmeterol [Advair Diskus] 100-50 mcg/dose blister with device 1 inh INHALATION BID RF: 0 Delsym Cough-Chest Congest DM 5-100 mg/5 mL Liquid 10 ml PO Q6H PRN (Reason: Cough) RF: 0 albuterol sulfate 90 mcg/actuation Hfa Aerosol Inhaler 1 inh INHALATION QID PRN (Reason: Shortness Of Breath) RF: 0 fluticasone propionate 50 mcg/actuation spray,suspension 1 spray INTRANASAL BID RF: 0 guaifenesin [Mucinex] 600 mg Tablet Extended Release 12hr 600 mg PO Q12H PRN (Reason: chest congestion) RF: 0 Discharge Orders: Discharge Order (Routine); Ordered 04/28/19 Ordered By: Handy Polo Admission Data Admit Date/Time: 04/26/19 14:58 Attending Provider: Handy Polo Admit Provider: Raman Shore Primary Care Provider: Kindra Wasserman Other Providers: Raman Shore Coding Level of Care Code D/C Day Management >30 mins Diagnoses Multifocal pneumonia J18.9 Sepsis A41.9 Sepsis acute organ dysfunction status: unspecified Sepsis type: sepsis due to unspecified organism Influenza A J10.1 Asthma J45.909
== END 2019-04-28 11:09 | disposition home or self-care (01) | DRG 195 ==
LOC: ED 12:04 → SUATTDRO 14:58 → 2E 14:58